=== PATIENT | male | born 2000 | race African-American/Black ===

== ENCOUNTER 2020-08-18 15:15 | Emergency (ER) | payer OTHER, SELFPAY ==
[2020-08-18 15:16] VITALS: BP 118/72; PULSE 77; RESP 16; TEMP 36.4; O2SAT 99; BMI 22.2
[2020-08-18] MEDS: oxyCODONE 5 MG Tablet PO (15:30)
--- NOTE | 2020-08-18 15:33 | ED.DCSUM_ITS ---
- ER Visit Summary Date of Service: 08/18/20 Chief Complaint: Right shoulder injury History of Present Illness: The patient is a 20 M presenting with right shoulder injury. Patient was wrestling and came down on his right shoulder. He is concerned about possible dislocation. Denies other injuries. Physical Examination: Vitals are stable. Patient is afebrile. Alert no acute distress. HEENT exam is unremarkable. Neck is nontender Lungs are clear and equal bilaterally. Heart is regular rate and rhythm. Extremities right anterior shoulder tenderness with passive full range of motion. Skin is warm and dry. No focal neurologic deficit. Remainder of exam is unremarkable. Emergency Department Course and Treatment: Patient was given OxyIR. Right shoulder x-ray read by myself and radiology shows normal x-ray examination of the shoulder. Sling was applied. Patient is given prescription for Percocet. He is from out of [facility]. He will follow-up with orthopedics when he returns home. Advised return to the ED for worsening complaints. Disposition: Discharge home Impression: Right shoulder injury This note was generated with [employer] dictation software. It may contain incorrect words, spelling, and punctuation that were not noted in review of the chart prior to signing ED Disposition - Plan for ED Patient: Referrals: [facility] Doctor,Out of [Primary Care Provider] -
--- NOTE | 2020-08-18 15:44 | RAD_ITS ---
STUDY: X-RAY - RIGHT SHOULDER REASON FOR EXAM: Male, 20 years old. Pain with limited range of motion after falling onto shoulder while wrestling TECHNIQUE: 3 view(s) of the shoulder. COMPARISON: None. FINDINGS: Normal glenohumeral articulation. Normal acromioclavicular joint. Normal acromion. Normal humeral head and visualized proximal humerus. The soft tissue structures are unremarkable. Normal visualized pulmonary apex. RAD/Shoulder min 2 Views IMPRESSION: Normal x-ray examination of the shoulder. Electronically Signed: Clark Coronado MD ([place]) at 15:56 EDT , Service support ,
--- NOTE | 2020-08-18 16:17 | ED.DEP ---
ED Disposition - Plan for ED Patient: Instructions: ED Shoulder Sprain Prescriptions: Oxycodone HCl/Acetaminophen [Percocet 5/325] 1 tablet PO Q6H PRN PRN 3 Days #12 tab PRN Reason: Pain Prescription Printed Referrals: [facility],Out of [Primary Care Provider] -
== END 2020-08-18 16:45 | disposition home or self-care (01) ==
LOC: ED 16:40
PROVIDERS: Emergency Provider Emergency Medicine
DX: S49.91XA Unspecified injury of right shoulder and upper arm, initial encounter (principal); X58.XXXA Exposure to other specified factors, initial encounter; Y93.72 Activity, wrestling; Y92.9 Unspecified place or not applicable; Y99.9 Unspecified external cause status
CPT/HCPCS: 73030; 99283